=== PATIENT | male | born 1965 | race Caucasian/White ===

== ENCOUNTER → 2018-02-11 10:30 | Outpatient (CLI) | payer BC, SELFPAY ==
[2018-02-11 12:32] LABS: Alanine Aminotransferase 66 U/L (12-78); Albumin Level 3.8 gm/dL (3.4-5.0); Albumin/Globulin Ratio 1.2 (1.1-1.8); Alkaline Phosphatase 83 U/L (46-116); Anion Gap 10.4 mEq/L (5-15); Aspartate Amino Transferase 25 U/L (15-37); Bilirubin,Total 0.4 mg/dL (0.2-1.0); Blood Urea Nitrogen 16 mg/dL (7-18); Calcium 9.1 mg/dL (8.5-10.1); Carbon Dioxide 30 mmol/L (21.0-32.0); Chloride 104 mmol/L (98-107); Chol/HDL Ratio 5.3 (1-3.5); Cholesterol 206 mg/dL (140-200); Creatinine,Serum 0.94 mg/dL (0.70-1.30); Estimated Glomerular Filt Rate 84 ml/min (>60); GFR (African American) 102 ML/MIN (>60); Globulin 3.2 gm/dl (1.3-3.2); Glucose 194 mg/dL (74-106); HDL Cholesterol 39 mg/dL (27-67); LDL Cholesterol 137 mg/dL (0-130); Potassium 4.4 mmoL/L (3.5-5.1); Sodium 140 mmol/L (136-145); Triglycerides 151 mg/dL (30-200); VLDL Cholesterol 30 mg/dL (0-40)
== END ==
PROVIDERS: Visit Provider Nurse Practitioner
DX: E78.5 Hyperlipidemia, unspecified (principal)
CPT/HCPCS: 36415; 80053; 80061

== ENCOUNTER → 2018-12-03 09:45 | Outpatient (CLI) | payer BC, SELFPAY ==
[2018-12-03 12:55] LABS: Alanine Aminotransferase 61 U/L (12-78); Albumin Level 3.8 gm/dL (3.4-5.0); Albumin/Globulin Ratio 1.2 (1.1-1.8); Alkaline Phosphatase 80 U/L (46-116); Anion Gap 13.4 mEq/L (5-15); Bilirubin,Total 0.4 mg/dL (0.2-1.0); Blood Urea Nitrogen 13 mg/dL (7-18); Calcium 9.4 mg/dL (8.5-10.1); Carbon Dioxide 29 mmol/L (21.0-32.0); Chloride 108 mmol/L (98-107); Chol/HDL Ratio 3.9 (1-3.5); Cholesterol 142 mg/dL (140-200); Creatinine,Serum 0.86 mg/dL (0.70-1.30); Estimated Glomerular Filt Rate 93 ml/min (>60); GFR (African American) 113 ML/MIN (>60); Globulin 3.2 gm/dl (1.3-3.2); Glucose 148 mg/dL (74-106); HDL Cholesterol 36 mg/dL (27-67); LDL Cholesterol 86 mg/dL (0-130); Sodium 146 mmol/L (136-145); Triglycerides 98 mg/dL (30-200); VLDL Cholesterol 20 mg/dL (0-40)
[2018-12-03 12:59] LABS: Aspartate Amino Transferase 25 U/L (15-37); Potassium 4.4 mmoL/L (3.5-5.1)
== END ==
PROVIDERS: Visit Provider Internal Medicine Cardiovascular Disease
DX: E78.2 Mixed hyperlipidemia (principal)
CPT/HCPCS: 36415; 80053; 80061

== ENCOUNTER → 2020-02-29 11:30 | Outpatient (CLI) | payer BC, SELFPAY ==
[2020-02-29 12:49] LABS: Alanine Aminotransferase 42 U/L (12-78); Albumin Level 4.3 g/dl (3.5-5.0); Albumin/Globulin Ratio 1.6 (1.1-1.8); Alkaline Phosphatase 83 U/L (38-126); Anion Gap 13.3 mEq/L (5-15); Aspartate Amino Transferase 44 U/L (17-59); Bilirubin,Total 0.6 mg/dl (0.2-1.3); Blood Urea Nitrogen 20 mg/dl (9-20); Calcium 9.4 mg/dl (8.4-10.2); Carbon Dioxide 28 mmol/L (22.0-30.0); Chloride 98 mmol/L (98-107); Chol/HDL Ratio 3.9 (1-3.5); Cholesterol 177 mg/dl (140-200); Estimated Glomerular Filt Rate 101 ml/min (>60); GFR (African American) 122 ML/MIN (>60); Globulin 2.7 g/dL (1.3-3.2); Glucose 183 mg/dl (74-100); HDL Cholesterol 45 mg/dl (40-60); Potassium 4.3 mmoL/L (3.5-5.1); Sodium 135 mmol/L (136-145); Triglycerides 172 mg/dl (30-150); VLDL Cholesterol 34 mg/dL (0-40)
[2020-02-29 13:00] LABS: Direct LDL Cholesterol 119.03 mg/dL (100-129)
[2020-02-29 13:59] LABS: Hemoglobin A1C 8.7 % (4.0-6.0)
== END ==
PROVIDERS: Visit Provider Internal Medicine
DX: E11.9 Type 2 diabetes mellitus without complications (principal)
CPT/HCPCS: 36415; 80053; 80061; 82043; 83036

== ENCOUNTER → 2020-04-23 10:53 | Outpatient (CLI) | payer BC, SELFPAY ==
[2020-04-23 12:00] LABS: Basophils % 0.8 % (0.1-2.0); Eosinophils # 0.2 K/mm3 (0.0-0.4); Eosinophils % 3.7 % (0.1-12.0); Hemoglobin 16.5 g/dL (14.1-18.0); Lymphocytes # 1.7 K/mm3 (0.7-4.5); Lymphocytes % 29.9 % (10-50); Mean Corpuscular HGB Conc 34.3 g/dL (31.8-35.4); Mean Corpuscular Hemoglobin 29.7 pg (27.0-31.2); Mean Corpuscular Volume 86.6 fl (80-94); Mean Platelet Volume 9.3 fl (7.4-10.4); Monocytes # 0.4 K/mm3 (0.1-1.0); Monocytes % 6.9 % (1.7-9.3); Neutrophils # 3.4 K/mm3 (1.8-7.8); Neutrophils % 58.7 % (37.0-80.0); Platelet Count 221 K/mm3 (142-424); Red Blood Count 5.54 M/mm3 (4.60-6.20); Red Cell Distribution Width 13.8 % (11.5-17.5); White Blood Count 5.7 K/mm3 (4.8-10.8)
[2020-04-23 12:22] LABS: Chloride 100 mmol/L (98-107); Potassium 4.5 mmoL/L (3.5-5.1); Sodium 135 mmol/L (136-145)
[2020-04-23 12:24] LABS: Blood Urea Nitrogen 18 mg/dl (9-20)
[2020-04-23 12:25] LABS: Uric Acid 5.6 mg/dl (3.5-8.5)
[2020-04-23 12:25] LABS: Alanine Aminotransferase 37 U/L (12-78); Albumin Level 4.3 g/dl (3.5-5.0); Albumin/Globulin Ratio 1.5 (1.1-1.8); Alkaline Phosphatase 88 U/L (38-126); Anion Gap 11.5 mEq/L (5-15); Aspartate Amino Transferase 29 U/L (17-59); Bilirubin,Total 0.5 mg/dl (0.2-1.3); Calcium 9.9 mg/dl (8.4-10.2); Carbon Dioxide 28 mmol/L (22.0-30.0); Cholesterol 179 mg/dl (140-200); Estimated Glomerular Filt Rate 100 ml/min (>60); GFR (African American) 121 ML/MIN (>60); Globulin 2.8 g/dL (1.3-3.2); Glucose 183 mg/dl (74-100); Total Protein,Serum 7.1 g/dl (6.3-8.2); Triglycerides 189 mg/dl (30-150); VLDL Cholesterol 38 mg/dL (0-40)
[2020-04-23 12:26] LABS: Chol/HDL Ratio 4.6 (1-3.5); HDL Cholesterol 39 mg/dl (40-60)
[2020-04-23 12:37] LABS: Direct LDL Cholesterol 119.79 mg/dL (100-129)
[2020-04-23 12:59] LABS: Prostate Specific Ag Screen 0.9 ng/ml (0.0-4.0); Thyroid Stimulating Hormone 2.63 uIU/mL (0.465-4.68)
== END ==
PROVIDERS: Family Medicine; Visit Provider Internal Medicine Cardiovascular Disease
DX: E78.2 Mixed hyperlipidemia (principal); E66.01 Morbid (severe) obesity due to excess calories; I10 Essential (primary) hypertension; M10.9 Gout, unspecified; Z12.5 Encounter for screening for malignant neoplasm of prostate
CPT/HCPCS: 36415; 80053; 80061; 84443; 84550; 85025; G0103

== ENCOUNTER 2021-11-12 15:12 | Emergency (ER) | payer BC, SELFPAY ==
[2021-11-12] VITALS (9 sets, daily range): BP systolic 95–122; BP diastolic 49–71; PULSE 82–95; RESP 16–19; TEMP 36.8–36.9; O2SAT 94–98; BMI 46.7
--- NOTE | 2021-11-12 15:37 | ECG_ITS ---
APPROVED REPORT Exam: Resting ECG HR:83 bpm ECG Measurements Heart Rate 83 AXES VT 159 P 57 QRSd 113 QRS 8 QT 373 T 0 QTc 412 Conclusion SINUS RHYTHM LOW QRS VOLTAGE IN PRECORDIAL LEADS [QRS DEFLECTION < 1.0 mV IN CHEST LEADS] MODERATE INTRAVENTRICULAR CONDUCTION DELAY [110+ ms QRS DURATION] BORDERLINE ECG UNCONFIRMED REPORT Electronically signed by : Oracio De Luna MD 11/12/2021 18:11:34
[2021-11-12 16:31] LABS: Basophils # 0.1 K/mm3 (0-0.2); Basophils % 0.7 % (0.1-2.0); Eosinophils # 0.2 K/mm3 (0.0-0.4); Eosinophils % 1.5 % (0.1-12.0); Hematocrit 49.1 % (42.0-52.0); Hemoglobin 16.2 g/dL (14.1-18.0); Lymphocytes # 0.8 K/mm3 (0.7-4.5); Mean Corpuscular Hemoglobin 29.5 pg (27.0-31.2); Mean Corpuscular Volume 89.4 fl (80-94); Mean Platelet Volume 9.5 fl (7.4-10.4); Monocytes # 0.4 K/mm3 (0.1-1.0); Monocytes % 3.5 % (1.7-9.3); Neutrophils # 9.6 K/mm3 (1.8-7.8); Neutrophils % 87.3 % (37.0-80.0); Platelet Count 238 K/mm3 (142-424); Red Blood Count 5.49 M/mm3 (4.60-6.20); Red Cell Distribution Width 14.1 % (11.5-17.5)
[2021-11-12 16:33] LABS: MANUAL DIFFERENTIAL MANUAL DIFFERENTIAL (MANUAL DIFF)
[2021-11-12 16:48] LABS: Eosinophils % 2 % (0-3); Lymphocytes % 10 % (10-50); Monocytes % 2 % (2-9); Neutrophils % 86 % (42-76); Platelet Estimate Normal; RBC Morphology Normal; Total Cells Counted 100
[2021-11-12 17:03] LABS: Alanine Aminotransferase 61 U/L (12-78); Albumin Level 4.5 g/dl (3.5-5.0); Albumin/Globulin Ratio 1.6 (1.1-1.8); Alkaline Phosphatase 77 U/L (38-126); Aspartate Amino Transferase 48 U/L (17-59); Bilirubin,Total 0.9 mg/dl (0.2-1.3); Blood Urea Nitrogen 17 mg/dl (9-20); Carbon Dioxide 30 mmol/L (22.0-30.0); Chloride 99 mmol/L (98-107); Creatinine Clearance Estimated 101 mL/min (50-200); Estimated Glomerular Filt Rate 87 ml/min (>60); GFR (African American) 106 ML/MIN (>60); Globulin 2.9 g/dL (1.3-3.2); Glucose 252 mg/dl (74-100); Sodium 138 mmol/L (136-145); Total Protein,Serum 7.4 g/dl (6.3-8.2)
--- NOTE | 2021-11-12 17:20 | PC.NURSE ---
pt reports feeling better, IVF infusion has finished pt is sitting up in bed drinking shirley-nereyda at this time. Notified DIOGO CHAMBERLAIN
--- NOTE | 2021-11-12 17:54 | HMH.EDGENADL ---
ED Disposition Clinical Impression: Vasovagal episode Vomiting Qualifiers: Vomiting type: unspecified Nausea presence: with nausea Qualified Code(s): R11.2 - Nausea with vomiting, unspecified Disposition: Home, Self-Care Condition on Discharge: Good Instructions: DI for Nausea -- Adult Additional Instructions: Follow-up with your primary care provider. Call tomorrow make appointment. Return the emergency department if symptoms return. Referrals: Oracio De Luna MD [Primary Care Provider] - - Critical Care Critical Care Time: No Attestation: On 11/12/21, the high probability of a clinically significant, sudden or life threatening deterioration of the following system(s) required my full and direct attention, intervention and personal management. The time I documented below is in addition to time spent performing reported procedures but includes the following listed in this critical care notation. Medical Decision Making - Efrain Inquiry Pt receiving controlled substance: No Vital Signs: 11/12/21 15:14 11/12/21 15:44 11/12/21 15:46 Temperature 98.4 F Temperature Source Oral Pulse Rate Pulse Rate [Orthostatic Lying Right] 83 91 H Pulse Rate [Right Radial] 83 Respiratory Rate 18 Blood Pressure Blood Pressure [Orthostatic Lying Right Arm] 117/69 112/49 L Blood Pressure [Right Arm] 95/50 L Blood Pressure Mean Blood Pressure Mean [Right Arm] 65 Blood Pressure Source [Right Arm] Automatic Cuff Blood Pressure Position [Right Arm] Sitting 02 Sat by Pulse Oximetry 97 Oxygen Delivery Method Room Air 11/12/21 15:49 11/12/21 16:03 11/12/21 16:30 Temperature Temperature Source Pulse Rate 90 82 85 Pulse Rate [Orthostatic Lying Right] 95 H Pulse Rate [Right Radial] Respiratory Rate 16 19 Blood Pressure 100/52 L 102/54 L 113/65 Blood Pressure [Orthostatic Lying Right Arm] 100/52 L Blood Pressure [Right Arm] Blood Pressure Mean 64 74 Blood Pressure Mean [Right Arm] Blood Pressure Source [Right Arm] Blood Pressure Position [Right Arm] 02 Sat by Pulse Oximetry 98 98 95 Oxygen Delivery Method 11/12/21 17:00 11/12/21 17:31 Temperature Temperature Source Pulse Rate 91 H 86 Pulse Rate [Orthostatic Lying Right] Pulse Rate [Right Radial] Respiratory Rate 16 Blood Pressure 119/69 122/71 Blood Pressure [Orthostatic Lying Right Arm] Blood Pressure [Right Arm] Blood Pressure Mean 81 Blood Pressure Mean [Right Arm] Blood Pressure Source [Right Arm] Blood Pressure Position [Right Arm] 02 Sat by Pulse Oximetry 94 L 96 Oxygen Delivery Method - Lab Data Lab Results 11/12/21 16:04: WBC 11.0 H, RBC 5.49, Hgb 16.2, Hct 49.1, MCV 89.4, MCH 29.5, MCHC 33.0, RDW 14.1, Plt Count 238, MPV 9.5, Neut % (Auto) 87.3 H, Lymph % (Auto) 7.0 L, [place] % (Auto) 3.5, Eos % (Auto) 1.5, Baso % (Auto) 0.7, Neut # (Auto) 9.6 H, Lymph # (Auto) 0.8, [place] # (Auto) 0.4, Eos # (Auto) 0.2, Baso # (Auto) 0.1, Total Counted 100, Neutrophils % (Manual) 86 H, Lymphocytes % (Manual) 10, Monocytes % (Manual) 2, Eosinophils % (Manual) 2, Platelet Estimate Normal, RBC Morphology Normal 11/12/21 16:04: Sodium 138, Potassium 4.0, Chloride 99, Carbon Dioxide 30, Anion Gap 13.0, BUN 17, Creatinine 0.90, Estimated Creat Clear 101, Estimated GFR 87, Est GFR ( Amer) 106, Glucose 252 H, Calcium 9.0, Total Bilirubin 0.9, AST 48, ALT 61, Alkaline Phosphatase 77, Total Protein 7.4, Albumin 4.5, Globulin 2.9, Albumin/Globulin Ratio 1.6 Result diagrams: 11/12/21 16:04 11/12/21 16:04 Orders (Tests/Meds): ED MEDICATIONS Generic Name Dose Route Start Last Admin Trade Name Freq PRN Reason Stop Dose Admin Sodium Chloride 10 ml 11/12/21 16:19 Sodium Chloride 0.9% 10ml Flush Syringe IV 12/12/21 16:18 NEEDED PRN Maintain IV Site Discontinued Medications Generic Name Dose Route Start Last Admin Trade Name Freq PRN Reason Stop Dose Admin Sodium C
--- NOTE | 2021-11-12 17:56 | PC.NURSE ---
DIOGO CHAMBERLAIN at
== END 2021-11-12 18:28 | disposition home or self-care (01) ==
PROVIDERS: Emergency Provider Emergency Medicine; PCP Internal Medicine Adolescent Medicine
DX: R42 Dizziness and giddiness (principal); R11.2 Nausea with vomiting, unspecified; E11.65 Type 2 diabetes mellitus with hyperglycemia
CPT/HCPCS: 80053; 85007; 85025; 93005; 96360; 96365; 99283

== ENCOUNTER → 2023-05-31 13:49 | Outpatient (POV) | payer BC, SELFPAY ==
[2023-05-31 14:13] VITALS: BP 124/70; PULSE 80; RESP 20; BMI 43.7
--- NOTE | 2023-05-31 14:36 | EXP.PAIN.OV ---
HPI Data of Consult Patient: new to practice Consult date: 05/31/23 Requesting Physician: Stewart Gutierrez CRNA Primary Care Provider: Sunny Osborne Family Provider: Sunny Osborne Consult Narrative Reason for consult: Left lumbar back pain. Left posterior hip pain. History of present illness: Mr. Edwards is a 58 year old male who comes our clinic today for initial evaluation regarding chronic left low lumbar back pain as well as left posterior hip pain. Patient reports lifting a tree recently and feeling a sharp pain in the left low lumbar area that radiated down through the left posterior hip. He rates the pain 7/10. Patient also reports having a standard shift vehicle and uses the clutch often. Upon examination he has extreme point tenderness over the left low lumbar and posterior hip. He describes the pain as constant, dull, aching, sharp, stabbing. Patient has difficulty transitioning from sitting to standing. Difficulty turning over in bed secondary to increased pain. Difficulty with ambulation secondary to pain. I discussed in detail with the patient regarding left sacroiliac joint injection of cortisone and lidocaine. Answered his questions. Discussed risk versus benefits. He wishes to proceed. Patient has tried and failed conservative treatment such as 800 mg NSAIDs. Intramuscular injection of cortisone. Physical therapy. Home exercise program. He is having difficulty with chores around the house secondary to pain. He is having difficulty riding in a car for any length of time due to pain. CC: Stewart Gutierrez CRNA [facility] Disclaimer: The information contained in this section may have been updated after the patient was seen, as this information can be updated by other users. Medical History (Updated 05/31/23 @ 14:40 by Stewart Gutierrez CRNA) Diabetes mellitus GERD (gastroesophageal reflux disease) Gout Hyperlipidemia Hypertension Vasovagal episode Vomiting Family History Father Coronary artery disease Heart attack Diabetes Social History (Updated 05/31/23 @ 14:14 by rBitt Lucas RN) Smoking Status: Never smoker alcohol intake: never substance use type: denies use current occupational status: other Travel in the last 8 weeks: None Meds Home Medications and Allergies Home Medications Medication Instructions Recorded Confirmed Type allopurinol 300 mg tablet 300 mg PO DAILY 02/17/23 02/17/23 History colchicine (gout) 0.6 mg tablet 0.6 mg PO DAILY 02/17/23 02/17/23 History dapagliflozin propanediol 10 mg 10 mg PO DAILY 02/17/23 02/17/23 History tablet (Farxiga) glimepiride 4 mg tablet 4 mg PO DAILY 02/17/23 02/17/23 History lisinopril 20 1 tab PO DAILY 02/17/23 02/17/23 History mg-hydrochlorothiazide 25 mg tablet omeprazole 40 mg capsule,delayed 40 mg PO DAILY 02/17/23 02/17/23 History release pravastatin 20 mg tablet 20 mg PO DAILY 02/17/23 02/17/23 History semaglutide 7 mg tablet (Rybelsus) 7 mg PO DAILY 02/17/23 02/17/23 History New Prescriptions to Start Prescriptions: Allergies Allergy/AdvReac Type Severity Reaction Status Date / Time No Known Allergies Allergy Verified 02/17/23 08:26 Objective Vital signs: Pulse Resp BP O2 Del Method 80 20 124/70 Room Air 05/31/23 14:13 05/31/23 14:13 05/31/23 14:13 05/31/23 14:13 Assessment and Plan *Assessment and plan (1) Sacroiliac joint pain: Status: Acute Category: Medical Code(s): M53.3 - Sacrococcygeal disorders, not elsewhere classified Plan Patient will return to the clinic tomorrow for injection of the left sacroiliac joint. I discussed with the patient regarding other pathology that could be causing the pain. However, I do feel certain this is classic sacroiliac joint inflammation symptoms. If in fact the sacroiliac joint injection does not improve his pain significantly with local anesthesia and reggie
== END ==
PROVIDERS: Visit Provider Nurse Anesthetist, Certified Registered
DX: M53.3 Sacrococcygeal disorders, not elsewhere classified (principal)
CPT/HCPCS: 99202; G0463

== ENCOUNTER 2023-06-01 10:14 | Day surgery (SDC) | payer BC, SELFPAY ==
[2023-06-01 10:21] VITALS: BP 111/76; PULSE 91; RESP 18; TEMP 36.4; O2SAT 91; BMI 43.7
[2023-06-01 10:39] VITALS: BP 148/95; PULSE 73; RESP 18; O2SAT 98
--- NOTE | 2023-06-01 10:39 | EXP.PAIN.PRO ---
Procedure Date: 06/01/23 Time: 10:30 Anesthesiologist:: Stewart Gutierrez CRNA Complications:: None Pre-procedure Diagnosis:: Left sacroiliitis. Post-procedure Diagnosis:: Same. Indications for Procedure:: Patient is a very pleasant 58-year-old male that comes our clinic today for left sacroiliac joint injection. Patient is having left low lumbar pain with radiation to the left posterior hip. Patient reports lifting a heavy tree and felt a sharp pain over the left low lumbar area. Upon examination he has extreme point tenderness over the left sacroiliac joint. He has difficulty transitioning from sitting to standing. Discussed in detail with the patient and his regarding left sacroiliac joint injection. If in fact injection produces significant improvement nothing more would be recommended. However, if in fact the left sacroiliac joint injection does not give him significant improvement we will proceed with lumbar MRI to further discern and rule out any lumbar spine pathology. He rates his pain 7/10. Procedure Details:: Procedure: Left sacroiliac injection under fluoroscopy Informed consent was obtained and the risk and benefits of the procedure were explained to the patient.~ The patient was taken to the procedure room and noninvasive monitors were placed including noninvasive blood pressure cuff and pulse oximeter.~ The patient was placed prone on the procedure table.~ The~ left hip was cleansed using Betadine as a cleansing solution.~ C-arm fluorosocpy was used to view the left SI joint.~ The skin and subcutaneous tissues were anesthetized using Lidocaine 1.5% and a 25-gauge needle.~ After this, a 22-gauge spinal needle was inserted under fluoroscopic guidance into the inferior aspect of the left SI joint.~ Omnipaque dye was injected and a good spread was seen throughout the joint.~ After this, approximately 5 mL of bupivacaine 0.25% and Depo-Medrol 40 mg was incrementally injected into the sacroiliac joint.~ The patient tolerated the procedure well with no complications.~ The patient was observed in the Pain Clinic for a period of 30-45 minutes, then discharged home neurologically intact.~ Plan and Disposition:: Patient was discharged out incident.
== END 2023-06-01 10:39 | disposition home or self-care (01) ==
PROVIDERS: Visit Provider Nurse Anesthetist, Certified Registered
DX: M46.1 Sacroiliitis, not elsewhere classified (principal)
CPT/HCPCS: 27096; G0260; J1040

== ENCOUNTER → 2023-06-23 11:06 | Outpatient (POV) | payer BC, SELFPAY ==
--- NOTE | 2023-06-23 11:49 | A.OFFVIS_ITS ---
[facility] Pain Management SOAP Note Subjective:: Patient is a pleasant 58-year-old male who presents today for follow-up of left SI injection on 06/01/2023. We are currently treating the patient for low back pain, left hip pain. Today he rates his pain a 1 out of 10. Patient states he has had at least 90% improvement following this injection and feels like it is still continuing to provide additional relief. Patient states he has been able to increase his activity with decreased pain symptoms. He states overall he feels more functional that the sensations he was having prior have completely resolved and he only occasionally will have a aching, pulling sensation that is more prominent at night. Patient denies any heart or kidney issues. He does also state that he feels like part of his symptoms are related to arthritis that his symptoms will occasionally worsen with cold weather. His Efrain has been reviewed and is appropriate. Review of Systems: General: No recent weight changes, no fever, no sleep disturbances Respiratory: No cough, no shortness of air, no recurring pulmonary infections Cardiovascular/peripheral vascular: No chest pain, no palpitations, no edema, no shortness of breath Gastrointestinal: No new onset incontinence, normal bowel movements reported Genitourinary: No new onset incontinence Musculoskeletal: Low back pain Psychiatric: [Normal mood/affect] Neurological: [Denies weakness in extremities], [denies balance issues] Objective:: Physical Exam: General: Alert and oriented x3, no acute distress, pleasant and cooperative Lungs: Respirations even and unlabored, symmetrical chest expansion Eyes: PERRL Musculoskeletal: Flexion and extension of lumbar [spine] somewhat guarded secondary to pain, [antalgic gait noted] Neurological: Speech clear, no gross sensory deficit Assessment:: Low back pain, left hip pain, left sacroiliitis Plan:: Patient has had more than 90% improvement following his SI injection and does not require any additional injection therapy at this time. I will send in a prescription of meloxicam 15 mg daily and provide a 1 month supply of this medication. I have counseled the patient to discontinue all other NSAIDs while taking this medication and to take it with food to minimize GI upset. Patient will return to clinic in 1 month for reevaluation of symptoms and plan of care. Patient has been instructed to contact the clinic with any concerns before the next appointment. Dr. Longoria has reviewed this note and agrees with this plan of care. This note was dictated using voice recognition software and make contain errors or omissions. [facility] Disclaimer: The information contained in this section may have been updated after the patient was seen, as this information can be updated by other users. Medical History Diabetes mellitus GERD (gastroesophageal reflux disease) Gout Hyperlipidemia Hypertension Vasovagal episode Vomiting Family History Father Coronary artery disease Heart attack Diabetes Social History (Updated 06/01/23 @ 10:27 by Dana Burton RN) Smoking Status: Never smoker alcohol intake: never substance use type: denies use current occupational status: other Travel in the last 8 weeks: None
[2023-06-23 12:02] VITALS: BP 129/79; PULSE 80; RESP 18; O2SAT 95; BMI 44.0
== END | disposition home or self-care (01) ==
PROVIDERS: Visit Provider Nurse Practitioner Family
DX: M54.50 Low back pain, unspecified (principal); M25.552 Pain in left hip; M46.1 Sacroiliitis, not elsewhere classified
CPT/HCPCS: 99212; G0463

== ENCOUNTER → 2023-07-21 08:08 | Outpatient (POV) | payer BC, SELFPAY ==
[2023-07-21 08:26] VITALS: BP 124/80; PULSE 90; RESP 18; O2SAT 95; BMI 44.7
--- NOTE | 2023-07-21 08:49 | A.OFFVIS_ITS ---
[facility] Pain Management SOAP Note Subjective:: Patient is a pleasant 58-year-old male who presents today for 1 month follow-up. We are currently treating the patient for low back pain, left hip pain, sacroiliitis. Today he rates his pain a 2 out of 10. Patient does state that he had a fall a couple of weeks ago that aggravated some of his symptoms but he is starting to feel better. Today he is doing well. Patient did previously have a left SI injection back in May that provided 90% relief and was doing really well prior to the fall. Patient does state he has still been able to increase his activity with decreased pain symptoms. He states he does notice the occasional pain with certain positioning but it is still very manageable. Patient is currently prescribed meloxicam 15 mg daily and states this is helping. He denies any side effects. His Efrain has been reviewed and is appropriate. Review of Systems: General: No recent weight changes, no fever, no sleep disturbances Respiratory: No cough, no shortness of air, no recurring pulmonary infections Cardiovascular/peripheral vascular: No chest pain, no palpitations, no edema, no shortness of breath Gastrointestinal: No new onset incontinence, normal bowel movements reported Genitourinary: No new onset incontinence Musculoskeletal: Low back pain Psychiatric: [Normal mood/affect] Neurological: [Denies weakness in extremities], [denies balance issues] Objective:: Physical Exam: General: Alert and oriented x3, no acute distress, pleasant and cooperative Lungs: Respirations even and unlabored, symmetrical chest expansion Eyes: PERRL Musculoskeletal: Flexion and extension of lumbar [spine] somewhat guarded se condary to pain, [antalgic gait noted] Neurological: Speech clear, no gross sensory deficit Assessment:: Low back pain, left hip pain, left sacroiliitis. Plan:: Patient continues to do well following his SI injection and does not require any additional injection therapy at this time. Patient will return to clinic in 3 months for reevaluation of symptoms and plan of care. I will refill the patient's meloxicam 15 mg daily and provide a 3-month supply of this medication. Patient has been instructed to contact the clinic with any concerns before the next appointment. Dr. Longoria has reviewed this note and agrees with this plan of care. This note was dictated using voice recognition software and make contain errors or omissions. PFSH PFSH Disclaimer: The information contained in this section may have been updated after the patient was seen, as this information can be updated by other users. Medical History Diabetes mellitus GERD (gastroesophageal reflux disease) Gout Hyperlipidemia Hypertension Vasovagal episode Vomiting Family History Father Coronary artery disease Heart attack Diabetes Social History (Updated 06/01/23 @ 10:27 by Dana Burton RN) Smoking Status: Never smoker alcohol intake: never substance use type: denies use current occupational status: other Travel in the last 8 weeks: None
== END | disposition home or self-care (01) ==
PROVIDERS: Visit Provider Nurse Practitioner Family
DX: M54.50 Low back pain, unspecified (principal); M25.552 Pain in left hip; M46.1 Sacroiliitis, not elsewhere classified
CPT/HCPCS: 99212; G0463

== ENCOUNTER → 2023-10-18 14:41 | Outpatient (POV) | payer BC, SELFPAY ==
--- NOTE | 2023-10-18 15:31 | A.OFFVIS_ITS ---
[facility] Pain Management SOAP Note Subjective:: Is a pleasant 58-year-old male who presents today for 3-month follow-up. We are currently treating the patient for low back pain, left hip pain, left-sided sacroiliitis. Today he rates his pain a 2 out of 10. Patient denies any new trauma or injury. He denies any change to location or type of pain that he experiences. Patient states he is still doing well with his meloxicam 15 mg daily. Patient does state that he does occasionally still have stiffness that is worse at the end of the day. Patient is interested in any help we can provide with this. He does state that he is scheduled for a [place] trip coming up in January and he wants to make sure that he is in the best shape he can be. His Efrain has been reviewed and is appropriate. Review of Systems: General: No recent weight changes, no fever, no sleep disturbances Respiratory: No cough, no shortness of air, no recurring pulmonary infections Cardiovascular/peripheral vascular: No chest pain, no palpitations, no edema, no shortness of breath Gastrointestinal: No new onset incontinence, normal bowel movements reported Genitourinary: No new onset incontinence Musculoskeletal: Low back pain Psychiatric: [Normal mood/affect] Neurological: [Denies weakness in extremities], [denies balance issues] Objective:: Physical Exam: General: Alert and oriented x3, no acute distress, pleasant and cooperative Lungs: Respirations even and unlabored, symmetrical chest expansion Eyes: PERRL Musculoskeletal: Flexion and extension of lumbar [spine] somewhat guarded secondary to pain, [antalgic gait noted] Neurological: Speech clear, no gross sensory deficit Assessment:: Low back pain, left hip pain, left sacroiliitis Plan:: I will refill the patient's meloxicam 15 mg daily and provide a 3-month supply of this medication. I will also send in a new prescription of methocarbamol 750 mg 3 times daily and provide a 2-week supply of this medication. I will order the patient a compounded cream. Patient will return to clinic in 2 months for reevaluation of symptoms and plan of care. Patient has been instructed to contact the clinic with any concerns before the next appointment. Dr. Longoria has reviewed this note and agrees with this plan of care. This note was dictated using voice recognition software and make contain errors or omissions. [facility] Disclaimer: The information contained in this section may have been updated after the patient was seen, as this information can be updated by other users. Medical History Diabetes mellitus GERD (gastroesophageal reflux disease) Gout Hyperlipidemia Hypertension Vasovagal episode Vomiting Family History Father Coronary artery disease Heart attack Diabetes Social History (Updated 06/01/23 @ 10:27 by Dana Burton RN) Smoking Status: Never smoker alcohol intake: never substance use type: denies use current occupational status: other Travel in the last 8 weeks: None
[2023-10-18 15:50] VITALS: BP 115/64; PULSE 93; RESP 18; O2SAT 95; BMI 45.4
== END | disposition home or self-care (01) ==
PROVIDERS: Visit Provider Nurse Practitioner Family
DX: M54.50 Low back pain, unspecified (principal); M25.552 Pain in left hip; M46.1 Sacroiliitis, not elsewhere classified
CPT/HCPCS: 99212; G0463

== ENCOUNTER 2023-12-16 14:50 | Outpatient (POV) | payer BC, SELFPAY ==
[2023-12-16 14:51] VITALS: BP 132/69; PULSE 87; RESP 16; O2SAT 95; BMI 44.7
--- NOTE | 2023-12-16 15:43 | A.OFFVIS_ITS ---
[facility] Pain Management SOAP Note Subjective:: Patient is a pleasant 58-year-old male who presents today for 2-month follow-up. Today he rates his pain a 8 out of 10. Patient states his pain is all around his low back and left skin. Patient does describe this as a chronic aching sensation that is worse with increased activity or prolonged positioning such as standing. Patient states that he did just get back from a trip to [place] where he did do a lot of walking with approximately 10-15,000 steps daily. Patient states that he did also have to go through a 5-hour plane ride there and the plane ride back. Patient does state on his way home he did get back on a plane ride in the middle seat and he was locked in a certain position that was very uncomfortable. He states that he could not really move around for the entire 3 to 4-hour flight and that this did seem to worsen his symptoms. Patient does state the pain is interfering with his ability to perform activities of daily living such as cooking and cleaning. Patient has previously had injections in the past that did provide significant relief. He is interested in possible injection therapy. Patient does state from our last visit that the methocarbamol prescription that we did send the pain significantly helps and he is requesting a refill at today's visit. Patient is also prescribed meloxicam 15 mg daily from our office. He denies any side effects from these medications. He is still scheduled for a trip to [facility] coming up in January. He does also state that the compounded cream we prescribed did help as well. His Efrain has been reviewed and is appropriate. Review of Systems: General: No recent weight changes, no fever, no sleep disturbances Respiratory: No cough, no shortness of air, no recurring pulmonary infections Cardiovascular/peripheral vascular: No chest pain, no palpitations, no edema, no shortness of breath Gastrointestinal: No new onset incontinence, normal bowel movements reported Genitourinary: No new onset incontinence Musculoskeletal: Low back pain, left hip pain Psychiatric: [Normal mood/affect] Neurological: [Denies weakness in extremities], [denies balance issues] Objective:: Physical Exam: General: Alert and oriented x3, no acute distress, pleasant and cooperative Lungs: Respirations even and unlabored, symmetrical chest expansion Eyes: PERRL Musculoskeletal: Flexion and extension of lumbar [spine] somewhat guarded secondary to pain, [antalgic gait noted] point tenderness along left SI with positive left Mahsa's, Corey's, Gaenslen's, compression and distraction exam Neurological: Speech clear, no gross sensory deficit Assessment:: Low back pain, left hip pain, left sacroiliitis Plan:: Patient is experiencing worsening pain in his low back and left hip with limited range of motion of his lumbar spine. Patient did have point tenderness along his left SI with a positive left Mahsa's, Corey's, Gaenslen's, compression and distraction exam. Patient was counseled that he may benefit from a repeat SI injection. Risk and benefits were discussed with patient and he would like to proceed forward with this plan of care. Patient did previously have a left SI injection back in May 2023 that did provide 90% relief lasting up until the last couple of weeks. We will submit to insurance for the left SI injection under fluoroscopy. I will also send in refills of his methocarbamol 750 mg 3 times daily and provide a 3-month supply of this medication. Patient has tried and failed conservative therapy including continued at home exercising and stretching for longer than 6 weeks. Patient has been instructed to contact the clinic with any concerns before the next appointment. Dr. Longoria has reviewed this note and agrees with this plan of care. This note was dictated using voice recognition software and make contain errors or omissions. [facility] Disclaimer: The information contained in this section may have been updated after the patient was seen, as this information can be updated by other users. Medical History Hyperlipidemia GERD (gastroesophageal reflux disease) Gout Diabetes mellitus Hypertension Vasovagal episode Vomiting Family History Father Coronary artery disease Heart attack Diabetes Social History Smoking Status: Never smoker alcohol intake: never substance use type: denies use current occupational status: employed Travel in the last 8 weeks: None
== END 2023-12-16 23:59 | disposition home or self-care (01) ==
LOC: SC.PAIN 14:51
PROVIDERS: Visit Provider Nurse Practitioner Family
DX: M54.50 Low back pain, unspecified (principal); M25.552 Pain in left hip; M46.1 Sacroiliitis, not elsewhere classified
CPT/HCPCS: 99212; G0463

== ENCOUNTER 2024-01-25 10:42 | Day surgery (SDC) | payer BC, SELFPAY ==
[2024-01-25 11:05] VITALS: BP 118/63; PULSE 86; RESP 18; TEMP 37; O2SAT 95; BMI 43.4
--- NOTE | 2024-01-25 11:14 | EXP.PAIN.PRO ---
Procedure Date: 01/25/24 Time: 11:10 Anesthesiologist:: Stewart Gutierrez CRNA Complications:: None Pre-procedure Diagnosis:: Left sacroiliitis. Post-procedure Diagnosis:: Same. Indications for Procedure:: Patient is a very pleasant 58-year-old male who comes our clinic today for a left sacroiliac joint injection of cortisone. Patient has extreme point tenderness over the left sacroiliac joint. He describes the pain in the left low lumbar area as well as left buttock is constant, dull, sharp, stabbing. He rates his pain 7/10. Procedure Details:: Procedure: Left sacroiliac injection under fluoroscopy Informed consent was obtained and the risk and benefits of the procedure were explained to the patient.~ The patient was taken to the procedure room and noninvasive monitors were placed including noninvasive blood pressure cuff and pulse oximeter.~ The patient was placed prone on the procedure table.~ The~ left hip was cleansed using Betadine as a cleansing solution.~ C-arm fluorosocpy was used to view the left SI joint.~ The skin and subcutaneous tissues were anesthetized using Lidocaine 1.5% and a 25-gauge needle.~ After this, a 22-gauge spinal needle was inserted under fluoroscopic guidance into the inferior aspect of the left SI joint.~ Omnipaque dye was injected and a good spread was seen throughout the joint.~ After this, approximately 5 mL of bupivacaine 0.25% and Depo-Medrol 40 mg was incrementally injected into the sacroiliac joint.~ The patient tolerated the procedure well with no complications.~ The patient was observed in the Pain Clinic for a period of 30-45 minutes, then discharged home neurologically intact.~ Plan and Disposition:: Patient was discharged without incident.
[2024-01-25 11:15] VITALS: BP 145/86; PULSE 71; RESP 18; O2SAT 95
[2024-01-25] MEDS: BUPIVACAINE 0.25% 10ML INJ 25 MG IJ (11:15)
[2024-01-25] MEDS: LIDOCAINE 1% 5ML PF VIAL 5 ML (11:16)
[2024-01-25] MEDS: methylPREDNISolone ACETATE 80MG/ML VIAL 80 MG (11:16)
== END 2024-01-25 11:15 | disposition home or self-care (01) ==
PROVIDERS: PCP Family Medicine; Visit Provider Nurse Anesthetist, Certified Registered
DX: M46.1 Sacroiliitis, not elsewhere classified (principal)
CPT/HCPCS: 27096; G0260; J1010

== ENCOUNTER 2024-01-27 22:16 | Emergency (ER) | payer BC, SELFPAY ==
[2024-01-27 22:16] VITALS: BP 134/78; PULSE 89; RESP 16; TEMP 36.9; O2SAT 98; BMI 43.4
--- NOTE | 2024-01-27 22:28 | XR_ITS ---
PROCEDURE INFORMATION: Exam: XR Abdomen Exam date and time: 01/27/2024 10:57 PM Age: 58 years old Clinical indication: Constipation; Additional info: No bm/not passing gas on glp-1 TECHNIQUE: Imaging protocol: Radiologic exam of the abdomen. Views: Frontal supine view of the abdomen. 1 View. COMPARISON: No relevant prior studies available. FINDINGS: Gastrointestinal tract: Significant fecal retention throughout the colon. No abnormally dilated bowel loops. Bones/joints: Moderate dextroscoliosis of the thoracolumbar spine. Multilevel degenerative changes throughout the lower spine. No acute fracture. IMPRESSION: Diffuse colonic constipation. No evidence of bowel obstruction. Chronic osseous changes as noted.
--- NOTE | 2024-01-27 22:30 | ED_ITS ---
Discharge Plan Disposition Patient Disposition: Home, Self-Care Prescriptions Prescriptions: New polyethylene glycol 3350 [Miralax] 17 gram/dose powder 17 g PO DAILY Qty: 510 0RF sennosides [Senna Lax] 8.6 mg tablet 8.6 mg PO DAILY Qty: 30 0RF No Action allopurinol 300 mg tablet 300 mg PO DAILY Rybelsus 7 mg tablet 7 mg PO DAILY Farxiga 10 mg tablet 10 mg PO DAILY glimepiride 4 mg tablet 4 mg PO DAILY lisinopril-hydrochlorothiazide 20-25 mg tablet 1 tab PO DAILY pravastatin 20 mg tablet 20 mg PO DAILY colchicine 0.6 mg tablet 0.6 mg PO DAILY omeprazole 40 mg capsule,delayed release(DR/EC) 40 mg PO DAILY methocarbamol 750 mg tablet 750 mg PO TID PRN (Reason: muscle spasm) Qty: 42 2RF meloxicam 15 mg tablet 15 mg PO DAILY Qty: 30 1RF Referrals Follow up/Referrals: Oracio Castaneda MD [Primary Care Provider] - See instructions Activity Restrictions/Add. Instructions Additional Instructions/Restrictions: You were evaluated in the emergency department today and diagnosed with constipation. Please use MiraLAX at home. You may titrate to soft stools. In the event of severe constipation, you may take up to 5 capfuls at a time. After this, titrate 1-2 capfuls daily as needed for constipation. Take with lots of fluids. supply chain associate your prescription for senna and take as prescribed as well. Follow-up closely with your primary care provider. Return to the emergency department for new or worsening symptoms. Clinical Impressions Clinical Impression: Constipation Instructions Patient Instructions: DI for Constipation, DI for Acute Abdominal Pain Discharge ED Provider: Kimberley Carlos General Adult HPI <Kimberley Carlos DO - Last Filed: 01/27/24 23:54> General Chief complaint: Abdominal Pain Stated complaint: poss constipation Time Seen by Provider: 01/27/24 22:21 History of Present Illness HPI narrative: This patient is a 58-year-old male with a history of obesity, diabetes on compounded semaglutide, gout, GERD, and hyperlipidemia presenting to the emergency department for evaluation with concern for abdominal pain, constipation, inability to pass gas today. He also notes that he is experiencing significant upper abdominal bloating as well as belching. He notes that his last bowel movement was 1.5 days ago. He states that he supposed to be on MiraLAX to help with bowel movements given that he is on the Rybelsus, however he has not been taking it. No fevers, chills, vomiting, or other concerns noted. Most of his discomfort is in his lower abdomen, but he experiences significant mount of upper abdominal bloating. He has still been able to eat and drink today and states that he has been eating quite a bit. No history of prior abdominal surgeries or bowel obstructions. Related Data Home Medications Medication Instructions Recorded Confirmed allopurinol 300 mg tablet 300 mg PO DAILY 02/17/23 12/16/23 colchicine 0.6 mg tablet 0.6 mg PO DAILY 02/17/23 12/16/23 dapagliflozin propanediol 10 mg 10 mg PO DAILY 02/17/23 12/16/23 tablet (Farxiga) glimepiride 4 mg tablet 4 mg PO DAILY 02/17/23 12/16/23 lisinopril 20 1 tab PO DAILY 02/17/23 12/16/23 mg-hydrochlorothiazide 25 mg tablet omeprazole 40 mg capsule,delayed 40 mg PO DAILY 02/17/23 12/16/23 release pravastatin 20 mg tablet 20 mg PO DAILY 02/17/23 12/16/23 semaglutide 7 mg tablet (Rybelsus) 7 mg PO DAILY 02/17/23 12/16/23 Previous Rx's Medication Instructions Recorded methocarbamol 750 mg tablet 750 mg PO TID PRN muscle spasm #42 12/20/23 tabs meloxicam 15 mg tablet 15 mg PO DAILY #30 tabs 01/18/24 polyethylene glycol 3350 17 17 g PO DAILY #510 grams 01/27/24 gram/dose oral powder (Miralax) sennosides 8.6 mg tablet (Senna 8.6 mg PO DAILY #30 tabs 01/27/24 Lax) Allergies Allergy/AdvReac Type Severity Reaction Status Date / Time No Known Allergies Allergy Verified 12/16/23 14:51 [facility] <Kimberley Carlos, DO - Last Filed: 01/27/24 23:54> [facility] Disclaimer: The information contained in this section may have been updated after the patient was seen, as this information can be updated by other users. Medical History Hyperlipidemia GERD (gastroesophageal reflux disease) Gout Diabetes mellitus Hypertension Vasovagal episode Vomiting Family History Father Coronary artery disease Heart attack Diabetes Social History Smoking Status: Never smoker alcohol intake: never substance use type: denies use current occupational status: employed Travel in the last 8 weeks: None <Kimberley Carlos DO - Last Filed: 01/27/24 23:54> ROS Obtained: Yes All systems reviewed & no additional complaints except as documented Physical Exam <Kimberley Carlos DO - Last Filed: 01/27/24 23:54> General General appearance: alert and in no apparent distress Head Head exam: atraumatic and normocephalic Eye Eye exam: Present normal appearance, PERRL and EOMI ENT ENT exam: Present normal exam, normal oropharynx, mucous membranes moist and normal external ear exam Neck Neck exam: Present normal inspection, full ROM and trachea midline; Absent tenderness Chest Chest inspection: Present normal inspection and symmetric chest wall rise; Absent tenderness Respiratory Respiratory exam: Present normal lung sounds bilaterally; Absent respiratory distress, wheezes, stridor or accessory muscle use Cardiovascular Cardiovascular exam: Present regular rate and normal rhythm Abdominal Exam Abdominal exam: Present soft, distention (Mild), tenderness (Generalized, worse in lower abdomen) and normal bowel sounds; Absent guarding, rebound or rigidity Extremities Exam Extremities exam: Present normal inspection, full ROM and normal capillary refill; Absent tenderness or edema Back Exam Back exam: Present normal inspection and full ROM; Absent tenderness Neurological Exam Neurological exam: Present alert, oriented X3, CN II-XII intact and normal gait Psychiatric Psychiatric exam: Present normal affect and normal mood Skin Skin exam: Present warm and dry Medical Decision Making <Kimberley Carlos DO - Last Filed: 01/27/24 23:54> Medical Records Medical records reviewed: Yes I reviewed the patient's medical records. Efrain Inquiry Pt receiving controlled substance: No Vital Signs: 01/27/24 22:16 01/27/24 23:49 Temperature 98.5 F Temperature Source Oral Pulse Rate 73 Pulse Rate [Right] 89 Respiratory Rate 16 18 Blood Pressure 120/71 Blood Pressure [Right Arm] 134/78 Blood Pressure Mean [Right Arm] 96 Blood Pressure Source Automatic Cuff Blood Pressure Position Sitting 02 Sat by Pulse Oximetry 98 95 Oxygen Delivery Method Room Air Lab Data Lab results reviewed: Yes I reviewed the patient's lab results. Lab Results 01/27/24 22:33: WBC 8.5, RBC 5.54, Hgb 16.4, Hct 50.3, MCV 90.9, MCH 29.6, MCHC 32.6, RDW 14.5, Plt Count 232, MPV 9.0, Neut % (Auto) 62.0, Lymph % (Auto) 28.7, [place] % (Auto) 4.9, Eos % (Auto) 3.3, Baso % (Auto) 1.1, Neut # (Auto) 5.3, Lymph # (Auto) 2.4, [place] # (Auto) 0.4, Eos # (Auto) 0.3, Baso # (Auto) 0.1, Sodium 138, Potassium 4.2, Chloride 104, Carbon Dioxide 26, Anion Gap 12.2, BUN 20, Creatinine 1.00, Estimated Creat Clear 88, Estimated GFR 77, Est GFR ( Amer) 93, Glucose 253 H, Calcium 9.8, Total Bilirubin 0.5, AST 58, ALT 72, Alkaline Phosphatase 97, Total Protein 7.7, Albumin 4.5, Globulin 3.2, Albumin/Globulin Ratio 1.4, Lipase 189 01/27/24 22:33 01/27/24 22:33 Orders (Tests/Meds): ED MEDICATIONS Discontinued Medications Generic Name Dose Route Start Last Admin Trade Name Freq PRN Reason Stop Dose Admin Lactated Ringer's 1,000 mls @ 999 mls/hr 01/27/24 22:28 01/27/24 22:42 Lactated Ringer's 1000 Ml Bag IV 01/27/24 23:28 999 mls/hr .Q1H1M ONE Administration Mineral Oil 133 ml 01/27/24 23:26 01/28/24 00:17 Mineral Oil Enema 133ml RC 01/27/24 23:27 Not Given ONCE ONE Polyethylene Glycol 17 gm 01/27/24 23:27 01/27/24 23:58 Polyethylene Glycol 3350 17 Gm Packet PO 01/27/24 23:28 17 gm ONCE ONE Administration Sennosides 17.2 mg 01/27/24 23:27 01/27/24 23:58 Senna 8.6mg Tablet PO 01/27/24 23:28 17.2 mg ONCE ONE Administration ORDERS Category Date Time Status KUB (single view) [XR KUB] Stat Exams 01/27/24 22:28 Taken Complete Blood Count Auto Diff Stat Lab 01/27/24 22:33 Completed Comprehensive Metabolic Panel Stat Lab 01/27/24 22:33 Completed Lipase Stat Lab 01/27/24 22:33 Completed Medical Decision Narrative: In summary, this patient is a 58-year-old male presenting to the Emergency Department for evaluation of abdominal bloating, constipation, and inability to pass gas times today. Differential diagnoses considered include but are not limited to constipation, ileus, bowel obstruction, pancreatitis given that he is on semaglutide which increases risk. Ruling out the most morbid conditions drove assessment. It should be noted patient's history includes obesity, diabetes, hyperlipidemia, and GERD which may or may not be at goal therapy. This complicates all aspects of care by increasing patient's risk for morbidity. On exam, the patient is nontoxic-appearing. He is mildly uncomfortable appearing with abdominal bloating and distention. No rebound or guarding. Workup included CBC, CMP, lipase, as well as KUB to evaluate for obstructive bowel gas pattern. He was given a bolus of IV fluids. I independently interpreted x-ray prior to radiology read and noted large stool burden with nonobstructive bowel gas pattern. Labs are reassuring with no concerns for pancreatitis or other concern. Findings consistent with severe constipation, so patient was given an enema as well as oral senna and MiraLAX. Patient care signed out to the oncoming provider, Dr. Greenfield, pending reassessment. <Octavio Greenfield MD - Last Filed: 01/28/24 00:20> Vital Signs: 01/27/24 22:16 01/27/24 23:49 Temperature 98.5 F Temperature Source Oral Pulse Rate 73 Pulse Rate [Right] 89 Respiratory Rate 16 18 Blood Pressure 120/71 Blood Pressure [Right Arm] 134/78 Blood Pressure Mean [Right Arm] 96 Blood Pressure Source Automatic Cuff Blood Pressure Position Sitting 02 Sat by Pulse Oximetry 98 95 Oxygen Delivery Method Room Air Lab Data Lab Results 01/27/24 22:33: WBC 8.5, RBC 5.54, Hgb 16.4, Hct 50.3, MCV 90.9, MCH 29.6, MCHC 32.6, RDW 14.5, Plt Count 232, MPV 9.0, Neut % (Auto) 62.0, Lymph % (Auto) 28.7, Llano % (Auto) 4.9, Eos % (Auto) 3.3, Baso % (Auto) 1.1, Neut # (Auto) 5.3, Lymph # (Auto) 2.4, Ll[place] # (Auto) 0.4, Eos # (Auto) 0.3, Baso # (Auto) 0.1, Sodium 138, Potassium 4.2, Chloride 104, Carbon Dioxide 26, Anion Gap 12.2, BUN 20, Creatinine 1.00, Estimated Creat Clear 88, Estimated GFR 77, Est GFR ( Amer) 93, Glucose 253 H, Calcium 9.8, Total Bilirubin 0.5, AST 58, ALT 72, Alkaline Phosphatase 97, Total Protein 7.7, Albumin 4.5, Globulin 3.2, Albumin/Globulin Ratio 1.4, Lipase 189 Orders (Tests/Meds): ED MEDICATIONS Discontinued Medications Generic Name Dose Route Start Last Admin Trade Name Freq PRN Reason Stop Dose Admin Lactated Ringer's 1,000 mls @ 999 mls/hr 01/27/24 22:28 01/27/24 22:42 Lactated Ringer's 1000 Ml Bag IV 01/27/24 23:28 999 mls/hr .Q1H1M ONE Administration Mineral Oil 133 ml 01/27/24 23:26 01/28/24 00:17 Mineral Oil Enema 133ml RC 01/27/24 23:27 Not Given ONCE ONE Polyethylene Glycol 17 gm 01/27/24 23:27 01/27/24 23:58 Polyethylene Glycol 3350 17 Gm Packet PO 01/27/24 23:28 17 gm ONCE ONE Administration Sennosides 17.2 mg 01/27/24 23:27 01/27/24 23:58 Senna 8.6mg Tablet PO 01/27/24 23:28 17.2 mg ONCE ONE Administration ORDERS Category Date Time Status KUB (single view) [XR KUB] Stat Exams 01/27/24 22:28 Taken Complete Blood Count Auto Diff Stat Lab 01/27/24 22:33 Completed Comprehensive Metabolic Panel Stat Lab 01/27/24 22:33 Completed Lipase Stat Lab 01/27/24 22:33 Completed Medical Decision Narrative: In summary, this patient is a 58-year-old male presenting to the Emergency Department for evaluation of abdominal bloating, constipation, and inability to pass gas times today. Differential diagnoses considered include but are not limited to constipation, ileus, bowel obstruction, pancreatitis given that he is on semaglutide which increases risk. Ruling out the most morbid conditions drove assessment. It should be noted patient's history includes obesity, diabetes, hyperlipidemia, and GERD which may or may not be at goal therapy. This complicates all aspects of care by increasing patient's risk for morbidity. On exam, the patient is nontoxic-appearing. He is mildly uncomfortable appearing with abdominal bloating and distention. No rebound or guarding. Workup included CBC, CMP, lipase, as well as KUB to evaluate for obstructive bowel gas pattern. He was given a bolus of IV fluids. I independently interpreted x-ray prior to radiology read and noted large stool burden with nonobstructive bowel gas pattern. Labs are reassuring with no concerns for pancreatitis or other concern. Findings consistent with severe constipation, so patient was given an enema as well as oral senna and MiraLAX. Patient care signed out to the oncoming provider, Dr. Greenfield, pending reassessment. Gin CHAMBERLAIN: I assumed care of the patient at the time of handoff from the prior provider. On reassessment patient had a large volume stool without an enema. I had an interactive discussion with patient regarding his presentation, as well as symptomatic care of constipation with MiraLAX. Patient was agreeable to plan and was discharged in stable condition with return precautions. Critical Care <Kimberley Carlos, DO - Last Filed: 01/27/24 23:54> Critical Care Time Critical Care Time: No
[2024-01-27 22:42] LABS: Basophils # 0.1 K/mm3 (0-0.2); Basophils % 1.1 % (0.1-2.0); Eosinophils # 0.3 K/mm3 (0.0-0.4); Eosinophils % 3.3 % (0.1-12.0); Hematocrit 50.3 % (42.0-52.0); Hemoglobin 16.4 g/dL (14.1-18.0); Lymphocytes # 2.4 K/mm3 (0.7-4.5); Lymphocytes % 28.7 % (10-50); Mean Corpuscular HGB Conc 32.6 g/dL (31.8-35.4); Mean Corpuscular Hemoglobin 29.6 pg (27.0-31.2); Mean Corpuscular Volume 90.9 fl (80-94); Monocytes # 0.4 K/mm3 (0.1-1.0); Monocytes % 4.9 % (1.7-9.3); Neutrophils # 5.3 K/mm3 (1.8-7.8); Platelet Count 232 K/mm3 (142-424); Red Blood Count 5.54 M/mm3 (4.60-6.20); Red Cell Distribution Width 14.5 % (11.5-17.5); White Blood Count 8.5 K/mm3 (4.8-10.8)
[2024-01-27] MEDS: LACTATED RINGERS 1000ML 1,000 ML 999 ML IV (22:42)
[2024-01-27 22:51] LABS: Chloride 104 mmol/L (98-107); Potassium 4.2 mmoL/L (3.5-5.1); Sodium 138 mmol/L (136-145)
[2024-01-27 22:53] LABS: Alanine Aminotransferase 72 U/L (12-78); Aspartate Amino Transferase 58 U/L (17-59); Blood Urea Nitrogen 20 mg/dl (9-20); Creatinine Clearance Estimated 88 mL/min (50-200); Estimated Glomerular Filt Rate 77 ml/min (>60); GFR (African American) 93 ML/MIN (>60)
[2024-01-27 22:54] LABS: Albumin Level 4.5 g/dl (3.5-5.0); Albumin/Globulin Ratio 1.4 (1.1-1.8); Alkaline Phosphatase 97 U/L (38-126); Anion Gap 12.2 mEq/L (5-15); Bilirubin,Total 0.5 mg/dl (0.2-1.3); Calcium 9.8 mg/dl (8.4-10.2); Carbon Dioxide 26 mmol/L (22.0-30.0); Globulin 3.2 g/dL (1.3-3.2); Glucose 253 mg/dl (74-100); Lipase 189 U/L (23-300); Total Protein,Serum 7.7 g/dl (6.3-8.2)
--- NOTE | 2024-01-27 23:08 | PC.NURSE ---
Pt taken to CT
[2024-01-27 23:49] VITALS: BP 120/71; PULSE 73; RESP 18; O2SAT 95
[2024-01-27] MEDS: POLYETHYLENE GLYCOL 3350 17 GM PACKET PO (23:58)
[2024-01-27] MEDS: SENNA 8.6MG TABLET 17.1999999999999993 MG PO (23:58)
--- NOTE | 2024-01-28 00:04 | PC.NURSE ---
pt ambulated to restroom to try BM before enema
[2024-01-28 00:23] VITALS: BP 123/75; PULSE 81; RESP 18; TEMP 36.7
== END 2024-01-28 00:26 | disposition home or self-care (01) ==
PROVIDERS: Emergency Provider Emergency Medicine; PCP Family Medicine
DX: R10.84 Generalized abdominal pain (principal); K59.00 Constipation, unspecified; E11.65 Type 2 diabetes mellitus with hyperglycemia; K21.9 Gastro-esophageal reflux disease without esophagitis; E78.5 Hyperlipidemia, unspecified; I10 Essential (primary) hypertension; Z79.84 Long term (current) use of oral hypoglycemic drugs
CPT/HCPCS: 74018; 80053; 83690; 85025; 96360; 99284; J7120

== ENCOUNTER 2024-02-16 13:13 | Outpatient (POV) | payer BC, SELFPAY ==
--- NOTE | 2024-02-16 13:23 | A.OFFVIS_ITS ---
[facility] Disclaimer: The information contained in this section may have been updated after the patient was seen, as this information can be updated by other users. Medical History Hyperlipidemia GERD (gastroesophageal reflux disease) Gout Diabetes mellitus Hypertension Vasovagal episode Vomiting Family History Father Coronary artery disease Heart attack Diabetes Social History Smoking Status: Never smoker alcohol intake: never substance use type: denies use current occupational status: employed Travel in the last 8 weeks: None PM Subjective & Objective Subjective Subjective:: Patient is a pleasant 58-year-old male who presents today for follow-up of bilateral SI injections on January 25, 2024. Today he rates his pain a 2 out of 10. He denies any new trauma or injury. He does state that he got significant relief following these bilateral SI injections with at least 80% improvement and feels like they are still helping. He states he was able to go on their vacation to [place] and able to walk frequently with overall decreased pain. He does state that the plane ride itself was a little bit more harder due to the positioning for the 9-hour flight. Patient does state that he forgot to take his meloxicam and does have a little bit more stiffness once he came back home. He is prescribed methocarbamol 750 mg 3 times daily, meloxicam 15 mg daily and compounded cream. He denies any side effects from these medications. His Efrain has been reviewed and is appropriate. Review of Systems: General: No recent weight changes, no fever, no sleep disturbances Respiratory: No cough, no shortness of air, no recurring pulmonary infections Cardiovascular/peripheral vascular: No chest pain, no palpitations, no edema, no shortness of breath Gastrointestinal: No new onset incontinence, normal bowel movements reported Genitourinary: No new onset incontinence Musculoskeletal: Low back pain Psychiatric: [Normal mood/affect] Neurological: [Denies weakness in extremities], [denies balance issues] Pain at rest (0-10 scale): 2 Objective Objective:: Physical Exam: General: Alert and oriented x3, no acute distress, pleasant and cooperative Lungs: Respirations even and unlabored, symmetrical chest expansion Eyes: PERRL Musculoskeletal: Flexion and extension of lumbar [spine] somewhat guarded secondary to pain, [antalgic gait noted] Neurological: Speech clear, no gross sensory deficit Has patient had previous pain injection?: Yes Percent improvement in pain since last injection: 80 Conservative treatment options previously tried: Home exercise plan Length of treatment: >6 weeks and Prescription medications Length of treatment: >6 week Meds Home Medications and Allergies Home Medications Medication Instructions Recorded Confirmed Type allopurinol 300 mg tablet 300 mg PO DAILY 02/17/23 12/16/23 History colchicine 0.6 mg tablet 0.6 mg PO DAILY 02/17/23 12/16/23 History dapagliflozin propanediol 10 mg 10 mg PO DAILY 02/17/23 12/16/23 History tablet (Farxiga) glimepiride 4 mg tablet 4 mg PO DAILY 02/17/23 12/16/23 History lisinopril 20 1 tab PO DAILY 02/17/23 12/16/23 History mg-hydrochlorothiazide 25 mg tablet omeprazole 40 mg capsule,delayed 40 mg PO DAILY 02/17/23 12/16/23 History release pravastatin 20 mg tablet 20 mg PO DAILY 02/17/23 12/16/23 History semaglutide 7 mg tablet (Rybelsus) 7 mg PO DAILY 02/17/23 12/16/23 History methocarbamol 750 mg tablet 750 mg PO TID PRN muscle spasm #42 12/20/23 Rx tabs meloxicam 15 mg tablet 15 mg PO DAILY #30 tabs 01/18/24 Rx polyethylene glycol 3350 17 17 g PO DAILY #510 grams 01/27/24 Rx gram/dose oral powder (Miralax) sennosides 8.6 mg tablet (Senna 8.6 mg PO DAILY #30 tabs 01/27/24 Rx Lax) New Prescriptions to Start Prescriptions: Allergies Allergy/AdvReac Type Severity Reaction Status Date / Time No Known Allergies Allergy Verified 12/16/23 14:51 Assessment and Plan *Assessment and plan (1) Low back pain: Status: Acute Qualifiers: Chronicity: chronic Back pain laterality: bilateral Sciatica presence: with sciatica Sciatica laterality: bilateral sciatica Qualified Code(s): M54.42 - Lumbago with sciatica, left side; M54.41 - Lumbago with sciatica, right side; G89.29 - Other chronic pain Category: Medical Code(s): M54.50 - Low back pain, unspecified Plan Patient is doing well following his bilateral SI injections and does not require any additional injection therapy at this time. I will refill his meloxicam and methocarbamol and provide a 3-month supply of these medications. Patient will return to clinic in 3 months for reevaluation of symptoms and plan of care. Patient has been instructed to contact the clinic with any concerns before the next appointment. Dr. Longoria has reviewed this note and agrees with this plan of care. This note was dictated using voice recognition software and make contain errors or omissions.
[2024-02-16 15:13] VITALS: BP 98/68; PULSE 101; RESP 18; O2SAT 95; BMI 43.4
== END 2024-02-16 23:59 | disposition home or self-care (01) ==
PROVIDERS: PCP Family Medicine; Visit Provider Nurse Practitioner Family
DX: G89.29 Other chronic pain (principal)
CPT/HCPCS: 99212; G0463